=== PATIENT | female | born 2005 | race Hispanic/Latino ===

== ENCOUNTER 2024-06-22 12:06 | Emergency (ER) | payer BC, SELFPAY ==
[2024-06-22 12:07] VITALS: BP 123/81
[2024-06-22 12:11] VITALS: BP 123/81
--- NOTE | 2024-06-22 12:14 | ED.GENMED ---
History of Present Illness
<DO Robi Hayes Filed: 06/22/24 16:08>
General
Chief Complaint: Seizure
Source: patient and ambulance crew
Time Seen by Provider: 06/22/24 12:11
History of Present Illness
History of Present Illness:
19-year-old female presents to the emergency room via ambulance after having events described as seizure-like activity. Patient went to [facility] to fill prescriptions. She began to feel unwell. She called her boyfriend to help support her. She then
went down to the ground and had some shaking. She evidently had multiple events of shaking which were short-lived. She had an event for paramedics where they observed her eyelids to be 'fluttering' and very rapid low amplitude shaking of her upper
and lower extremities. Actually she was doing just this when she was transferred over to a bed. She immediately answered questions though when asked.
Phy Exam
<Antony Peter DO - Last Filed: 06/22/24 16:08>
Physical Exam
Physical Exam:
General: Awake, Alert, Oriented X3. No acute distress.
Vitals: Tachycardic
Head: Atraumatic
Eyes: Pupils equal, EOMI
Throat: Airway intact, no exudates
Neck: Trachea midline
Lungs: Clear and equal b/l
Heart: Regular rate, no murmurs
Abd: Soft, Nontender, No pulsatile mass
Neuro: Cranial nerves intact, muscle strength equal bilaterally, cerebellar exam normal
Skin: Warm, dry, no rash
Extremities: pulses equal b/l, no edema
Course
<DO Robi Hayes Last Filed: 06/22/24 16:08>
Orders/Labs/Results
Orders:
Orders
06/22/24
Electrocardiogram (*1) Stat
Reason for Study: Chest Pain
Comment: DONE
06/22/24 12:13
CT Head W/o Iv Contrast Urgent
Comment:
Reason For Exam: altered mental status ? sz vs non-epileptic event
Test Result ONCE
06/22/24 12:21
Complete Blood Count/With Diff Urgent
Comprehensive Metabolic Panel Urgent
HCG, Serum Qualitative Screen Urgent
06/22/24 12:30
Lorazepam [Ativan] 2 mg .ROUTE .STK-MED ONE
06/22/24 12:32
Lorazepam [Ativan] 1 mg IV NOW STA
06/22/24 13:48
Lorazepam [Ativan] 1 mg IV NOW STA
06/22/24 14:54
Crisis Consult Urgent
Reason for Consult: depression, non-epileptic seizure
Abnormal Lab Results
06/22/24
12:21
Chloride 108 H mmol/L
(98-107)
Alkaline Phosphatase 131 H U/L
(38-126)
06/22/24 12:21
06/22/24 12:21
Vital Signs
Initial and Last Documented VS:
Initial Vital Signs
Temp Pulse Resp BP Pulse Ox
98 F 131 20 123/81 99
06/22/24 12:07 06/22/24 12:07 06/22/24 12:07 06/22/24 12:07 06/22/24 12:07
Last Documented Vital Signs
Temp Pulse Resp BP Pulse Ox
98 F 116 17 120/69 96
06/22/24 12:07 06/22/24 17:40 06/22/24 17:30 06/22/24 15:00 06/22/24 17:30
<Simran Nelson, DO - Last Filed: 06/22/24 22:53>
Orders/Labs/Results
Orders:
Orders
06/22/24
Electrocardiogram (*1) Stat
Reason for Study: Chest Pain
Comment: DONE
06/22/24 12:13
CT Head W/o Iv Contrast Urgent
Comment:
Reason For Exam: altered mental status ? sz vs non-epileptic event
Test Result ONCE
06/22/24 12:21
Complete Blood Count/With Diff Urgent
Comprehensive Metabolic Panel Urgent
HCG, Serum Qualitative Screen Urgent
06/22/24 12:30
Lorazepam [Ativan] 2 mg .ROUTE .STK-MED ONE
06/22/24 12:32
Lorazepam [Ativan] 1 mg IV NOW STA
06/22/24 13:48
Lorazepam [Ativan] 1 mg IV NOW STA
06/22/24 14:54
Crisis Consult Urgent
Reason for Consult: depression, non-epileptic seizure
Abnormal Lab Results
06/22/24
12:21
Chloride 108 H mmol/L
(98-107)
Alkaline Phosphatase 131 H U/L
(38-126)
06/22/24 12:21
06/22/24 12:21
Vital Signs
Initial and Last Documented VS:
Initial Vital Signs
Temp Pulse Resp BP Pulse Ox
98 F 131 20 123/81 99
06/22/24 12:07 06/22/24 12:07 06/22/24 12:07 06/22/24 12:07 06/22/24 12:07
Last Documented Vital Signs
Temp Pulse Resp BP Pulse Ox
98 F 116 17 120/69 96
06/22/24 12:07 06/22/24 17:40 06/22/24 17:30 06/22/24 15:00 06/22/24 17:30
<Simran Nelson DO - Last Filed: 06/22/24 22:53>
*Critical Care Note
Total Time (30-74mins, 75-104mins- exclusive of procedures): Not Applicable
<Simran Nelson DO - Last Filed: 06/22/24 22:53>
Update Note
Update Note:
Attending Signout Note (Simran Nelson DO)
16:00 -assuming care of patient, 19-year-old female with history of depression presenting for concern of seizure activity. Patient arrives with a seizure activity. 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 Patient
unremarkable laboratory analysis, CT brain imaging. Did receive lorazepam. Remains stable, no further seizure activity. In discussion with crisis, did evaluate patient for concern over mental health issues. Recommending partial program. Pending
formal crisis recommendations
17:10 -crisis has provided resources. Feel stable for discharge with continued outpatient follow-up. Return precautions discussed with patient and family at bedside who verbalized understanding
ED Attending Note
<Antony Peter DO - Last Filed: 06/22/24 16:08>
-
Portions of this chart may have been created with voice recognition software.� Occasional wrong word or��sound alike� substitutions may have occurred due to the inherent limitations of voice recognition software.
Discharge Plan
Departure
Patient Disposition: Home (Routine Discharge)
Date of Disposition: 06/22/24
Time of Disposition: 17:14
Patient with high blood pressure during this ER visit?: No
Discharge Problem:
Convulsion, non-epileptic
Instructions: Seizures, Adult (DC)
Prescriptions:
No Action
Theragen Tablet
1 tab PO DAILY
doxepin 100 mg Capsule
100 mg PO HS
norelgestromin-ethin.estradiol 150-35 mcg/24 hr patch weekly
1 patch topical SA
vilazodone 40 mg Tablet
40 mg PO DAILY
Ubrelvy 50 mg Tablet
50 mg PO DAILYPRN PRN (Reason: migraine)
Referrals:
Isabella Haro DO [Family Provider] -
Activity Restrictions/Additional Instructions:
I believe you were having non-epileptic events today. This does not require seizure medication but rather attention to the tremendous stress you are under. Please follow up in the program arranged by our [facility] template worker.
Interventions
Interventions:
*Risk Screen - Suicide Last Done: 06/22/24 12:07
*General Assessment Last Done: 06/22/24 12:07
*Neglect/Abuse Screening Last Done: 06/22/24 12:07
ED- Fall Risk Assessment Last Done: 06/22/24 17:54
*ED COVID-19 Vaccine History Last Done: 06/22/24 14:52
*Nursing Disposition Last Done: 06/22/24 17:54
ED- Cardiac Assessment Last Done: 06/22/24 14:52
ED- Neurological Assessment Last Done: 06/22/24 14:52
ED- Pulmonary Assessment Last Done: 06/22/24 14:52
Discharge Date and Time
Discharge Date/Time: 06/22/24 17:54
Print Language: GEORGIAN
[2024-06-22] MEDS: ATIVAN 1 MG IV ×2 (12:32→13:53)
[2024-06-22 12:36] LABS: % Basophils 0.4 % (0-2); % Eosinophils 0.8 % (0-6); % Immature Granulocytes 0.3 % (0-0.5); % Lymphocytes 23.5 % (20.5-51.1); % Monocytes 5.9 % (1.7-9.3); % Neutrophils 69.1 % (42.2-75.2); Absolute Eosinophils 0.1 10^3/uL (0-0.7); Absolute Lymphocytes 1.8 10^3/uL (1.2-3.4); Absolute Monocytes 0.5 10^3/uL (0.1-0.6); Absolute Neutrophils 5.3 10^3/uL (1.4-6.5); Hematocrit 38.9 % (37.0-47.0); Hemoglobin 13.4 g/dL (12.0-16.0); Mean Corp Hgb Conc. 34.4 g/dL (33.0-37.0); Mean Corpuscular Hgb 28.5 pg (27.0-31.0); Mean Corpuscular Volume 82.8 fL (81.0-99.0); Mean Platelet Volume 9.7 fL (7.4-10.4); Nucleated Red Blood Cells % 0 %; Platelet Count 306 10^3/uL (130-400); Red Cell Dist. Width 12.6 % (11.5-14.5); White Blood Cell Count 7.6 10^3/uL (4.8-10.8)
[2024-06-22 12:43] LABS: HCG, Serum Qualitative Screen Negative
[2024-06-22 12:47] LABS: ALT (SGPT) 22 U/L (0-35); AST (SGOT) 30 U/L (14-36); Albumin 4.4 g/dl (3.5-5.0); Alkaline Phosphatase 131 U/L (38-126); Blood Urea Nitrogen 8 mg/dl (7-17); Calcium 9.5 mg/dl (8.4-10.2); Carbon Dioxide 23 mmol/L (22-30); Chloride 108 mmol/L (98-107); Estimated Creatinine Clearance > 125 ml/min; Glucose 89 mg/dl (70-99); Sodium 142 mmol/L (135-145); Total Bilirubin 0.5 mg/dl (0.2-1.3); Total Protein 7.1 g/dl (6.3-8.2); eGFR > 60.00
[2024-06-22 13:00] VITALS: BP 127/85
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
[2024-06-22 14:00] VITALS: BP 119/75
[2024-06-22 15:00] VITALS: BP 120/69
== END 2024-06-22 17:54 | disposition home or self-care (01) ==
LOC: EMR 12:06
PROVIDERS: EMERGENCY PHYSICIAN Emergency Medicine; FAMILY PHYSICIAN Family Medicine
DX: R56.9 Unspecified convulsions (principal); Z88.8 Allergy status to other drugs, medicaments and biological substances
CPT/HCPCS: 99284; 96374; 96376; 70450; 80053; 84703; 85025; 93005